=== PATIENT | female | born 1965 ===

== ENCOUNTER 2018-11-11 22:40 | Emergency (ER) | payer OTHER ==
[~2018-11-11] VITALS: Ht 152.4 cm; Wt 72.6 kg
[~2018-11-11 22:40] MED LIST: ALBIPROI INH; HYDGUAL120 PO; PRED20 PO; SULTRIDS PO
[2018-11-12] MEDS ORDERED: CEPH500 PO (00:06)
[2018-11-12] MEDS ORDERED: Norco 5-325 Ta1 EACH PO (00:07)
== END 2018-11-12 00:09 | disposition home or self-care (01) ==
LOC: ER 22:40
DX: S61.300A Unspecified open wound of right index finger with damage to nail, initial encounter (principal); W27.4XXA Contact with kitchen utensil, initial encounter
CPT/HCPCS: 29130; 73120; 90471; 90714; 99282-25

== ENCOUNTER 2019-01-12 07:25 | Day surgery (SDC) | payer OTHER ==
[~2019-01-12] VITALS: Ht 152.4 cm; Wt 79.4 kg
[~2019-01-12 07:25] MED LIST changes: +CEPH500 PO; +Norco 5-325 Ta1 EACH PO
[2019-01-12] MEDS ORDERED: CYCL10 PO (08:13)
[2019-01-12] MEDS ORDERED: ZYRTEC10 M1 PO (08:13)
[2019-01-12] MEDS ORDERED: RIZATRIPTAN10 MG SL (08:14)
[2019-01-12] MEDS ORDERED: HYDSUL200 PO (08:15)
--- NOTE | 2019-01-12 08:22 | NUR ---
Ambulatory in Day Surgery History, Chart, Medications and Allergies reviewed before start of procedure. Lungs clear T/O to Auscultation. Patient confirms NPO status and agrees with scheduled surgery. Pre-Op teaching done. Pt verbalizes understanding. Patient States Post-Procedure ride home has been arranged.
--- NOTE | 2019-01-12 08:59 | NUR ---
01/12/19 0859 Kisha Casanova History, Chart, Medications and Allergies reviewed before start of procedure.PATIENT DETERMINED TO BE ASA APPROPRIATE FOR PROPOFOL SEDATION PRIOR TO START OF PROCEDURE BY . PATEINT WITH STOMACH FULL OF FOOD. MD PROCEDED WITH PROCEDURE. MONITOR INTACT WITH CONTINUOUS PULSE OXIMETRY AND INTERMITTENT BP.3-LEAD EKG REVIEWED WITH PHYSICIAN PRIOR TO START OF PROCEDURE.O2 VIA N/C INTACT THROUGHOUT SEDATION/PROCEDURE.
--- NOTE | 2019-01-12 09:04 | NUR ---
RECIEVED PATIENT AND REPORT PATIENT TAKEN TO STEP FRO RECOVERY VSS
--- NOTE | 2019-01-12 09:37 | NUR ---
LAB HAS BEEN HERE AND DONE LAB DRAW CALLED FOR ESCORT AND PATIENT PREPARED FOR DISCHARGE. Discharge instructions reviewed with patient. Patient verbalizes understanding. Copy given to patient to take home. Patient States Post-Procedure ride home has been arranged. Discharged via wheelchair to private car for ride home.
[2019-01-12 09:47] LABS: BASOPHILS ABSOLUTE AUTO 0.02 K/mm3 (0.00-0.23); BASOPHILS PERCENT AUTO 0 % (0-2); EOSINOPHILS ABSOLUTE AUTO 0.35 K/mm3 (0.00-0.68); EOSINOPHILS PERCENT AUTO 7 % (0-6); Hematocrit 29.9 % (33.0-51.0); IMMATURE GRAN ABSOLUTE AUTO 0.01 K/mm3 (0.00-0.10); IMMATURE GRAN PERCENT AUTO 0 % (0-1); LYMPHOCYTES ABSOLUTE AUTO 1.84 K/mm3 (0.84-5.20); LYMPHOCYTES PERCENT AUTO 34 % (21-46); MONOCYTES ABSOLUTE AUTO 0.46 K/mm3 (0.16-1.47); MONOCYTES PERCENT AUTO 9 % (4-13); Mean Corpuscular HGB 22.9 pg (26.0-34.0); Mean Corpuscular HGB Conc 30.1 g/dL (31.5-36.5); Mean Platelet Volume 9.9 fL (9.1-12.4); NEUTROPHILS ABSOLUTE AUTO 2.72 K/mm3 (1.96-9.15); NEUTROPHILS PERCENT AUTO 50 % (41-73); Platelet Count 322 K/mm3 (150-400); RDW Coefficient Variation 17.7 % (11.7-14.2); RDW Standard Deviation 49.1 fL (35.1-46.3); Red Blood Cell Count 3.93 M/mm3 (3.80-5.20)
[2019-01-12 09:57] LABS: Mean Corpuscular Volume 76 fL (80-100)
[2019-01-12 10:37] LABS: Percent Saturation 4.6 % (15.0-50.0)
== END 2019-01-12 22:42 | disposition home or self-care (01) ==
LOC: ORSCMMR 07:25 → ORD 08:30 → ORSCMMR 08:30
PROVIDERS: Internal Medicine Gastroenterology
PROC: 0DB68ZX Excision of Stomach, Via Natural or Artificial Opening Endoscopic, Diagnostic (ICD-10-PCS; principal; 2019-01-12 08:30)
PROC: 0DB98ZX Excision of Duodenum, Via Natural or Artificial Opening Endoscopic, Diagnostic (ICD-10-PCS; principal; 2019-01-12 08:30)
DX: D64.9 Anemia, unspecified (principal); K29.50 Unspecified chronic gastritis without bleeding; M32.9 Systemic lupus erythematosus, unspecified; P11.3 Birth injury to facial nerve; F41.8 Other specified anxiety disorders; Z79.899 Other long term (current) drug therapy
CPT/HCPCS: 36415; 82728; 83540; 83550; 85025; 88305; 88342; J2704; J7120